=== PATIENT | female | born 1970 | race Caucasian/White ===

== ENCOUNTER 2019-08-17 09:27 | Outpatient (CLI) | payer BC, SELFPAY ==
--- NOTE | ~2019-08-17 | US_ITS ---
EXAMINATION: US right upper quadrant DATE: 08/17/2019 10:18 INDICATION: Right upper quadrant abdominal pain. TECHNIQUE: Multiple grayscale and Doppler ultrasound images of the abdomen were obtained. COMPARISON: None FINDINGS: The visualized portions of the head, body, and tail of the pancreas are normal. There are 2 hyperechoic masses in the liver measuring up to 1.2 cm. There is normal flow in main portal vein. Th e gallbladder is normal in size. No gallstones or gallbladder wall thickening. There was no sonograph ic Dominguez sign. The common duct is normal and measures 4 mm. IMPRESSION: 1. Two hyperechoic masses in the liver measuring up to 1.2 cm. In the absence of known malignancy or chronic liver disease, these findings are likely hemangiomas. Reviewed, dictated and finalized at location A. IMPRESSION: 1. Two hyperechoic masses in the liver measuring up to 1.2 cm. In the absence o f known malignancy or chronic liver disease, these findings are likely hemangio mas.
== END 2019-08-17 09:28 | disposition home or self-care (01) ==
PROVIDERS: PCP Family Medicine; Visit Provider Family Medicine
DX: R10.11 Right upper quadrant pain (principal); R16.0 Hepatomegaly, not elsewhere classified
CPT/HCPCS: 76705

== ENCOUNTER 2023-04-20 18:48 | Emergency (ER) | payer BC, SELFPAY ==
--- NOTE | ~2023-04-20 | XR_ITS ---
EXAMINATION: XR chest 2V Exam Date/Time: 04/20/2023 20:00 [employer] HISTORY: cough with chest tightness,congestion, high BP Comparison: None. RESULT: Lines, tubes, and devices: Bilateral breast implants. Lungs and pleura: Clear. Cardiomediastinal silhouette: Unremarkable. Other: No acute osseous or upper abdominal finding. 2.1 cm ovoid opacity projecting over the lower i nner right breast. IMPRESSION: No acute cardiopulmonary process. 2.1 cm ovoid soft tissue nodule projecting over the lower inner right breast. Recommend referral for diagnostic breast ultrasound and mammography. Reviewed, dictated and finalized at location K. [employer] IMPRESSION: No acute cardiopulmonary process. 2.1 cm ovoid soft tissue nodule projecting over the lower inner right breast. R ecommend referral for diagnostic breast ultrasound and mammography.
[2023-04-20 19:31] VITALS: BP 177/102; PULSE 85; RESP 16; TEMP 37; O2SAT 98
--- NOTE | 2023-04-20 19:44 | ED.URI ---
HPI - URI/Sore Throat General Chief Complaint: Upper Respiratory Infection Stated Complaint: chest congestion,sob Time Seen by Provider: 04/20/23 19:45 Source: patient, RN notes reviewed and old records reviewed Mode of arrival: ambulatory Limitations: no limitations History of Present Illness HPI Narrative: 52-year-old female presents to the [facility] complaints of chest congestion and shortness of breath. For the last 2 nights. Patient states ?it feels like when I get pneumonia? Patient reports fever yesterday had some chest tightness last night, none currently Patient concern for virus is due to a new grandbaby Related Data Home Medications Medication Instructions Recorded Confirmed No Home Medications 04/20/23 04/20/23 Allergies Allergy/AdvReac Type Severity Reaction Status Date / Time sumatriptan [From Imitrex] AdvReac Unknown Unknown Verified 04/20/23 20:56 Review of Systems Review of Systems: All systems reviewed & are unremarkable except as noted in HPI and below Constitutional: Constitutional: Reports no additional constitutional complaints Eyes: Eyes: Reports no additional eye complaints ENT: Reports system reviewed and no additional complaints, except as documented Cardiovascular: Cardiovascular: Reports no additional cardiovascular complaints, Denies chest pain and Denies dyspnea Respiratory: Respiratory: Reports as per HPI, Reports chest congestion, Reports cough and Reports dyspnea Gastrointestinal: Gastrointestinal: Reports no additional gastrointestinal complaints, Denies abdominal pain, Denies nausea and Denies vomiting Musculoskeletal: Musculoskeletal: Reports no additional musculoskeletal complaints Integumentary/Breasts: Skin/Breast: Reports system reviewed and no additional complaints, except as docu Neurologic: Reports system reviewed and no additional complaints, except as documented Psychiatric: Psychiatric: Reports no additional psychiatric complaints Allergic/Immunologic: Allergic/Immunologic: Reports no additional allergic/immunologic complaints [facility] Past Medical History Medical History (Updated 04/20/23 @ 21:[address] Arias APRN) History of high blood pressure Surgical History Surgical History (Updated 04/20/23 @ 21:[address]as APRN) H/O breast implant Comments At the time of my signature, I reviewed and agree with the nursing past medical, surgical, social, and family history. There is no relevant family history pertinent to the patient complaint. Exam Const: General: cooperative, healthy appearing, comfortable, no acute distress, well developed, alert and well nourished Nutritional Appearance: well nourished Orientation/consciousness: patient oriented x3 Limitations: no limitations HENMT: Head: normal to inspection Ears: hearing grossly normal bilaterally, external ears normal, TM's normal bilaterally, EAC's normal, mastoids normal and no periauricular adenopathy Face/Nose/Sinus: Normal external nose present, Normal nares present, Normal nasal mucous membranes and turbinates present, normal facial exam and face symmetric Face and sinus: normal facial exam and face symmetric Mouth: Yes Normal oral and palatal mucosa present, Yes lip normal and Yes moist mucous membranes Throat: posterior oropharynx normal, uvula midline and postnasal drainage Eyes: General: appearance normal, both eyes and all related structures Alignment and Position: alignment normal Periorbital: periorbital findings normal Pupils: Equal, round and reactive pupils present EOM: EOMs intact bilaterally Neck: Neck: normal visual inspection, full ROM, no lymphadenopathy and no meningeal signs Chest: Chest palpation & inspection: normal inspection of the chest Resp: Effort & Inspection: normal respiratory effort and able to speak in complete sentences Auscultation: clear to auscultation bilaterally, no crackles, no rales, no rhonchi and no wheezes Cardio: Rate: regular r
== END 2023-04-20 20:37 | disposition home or self-care (01) ==
PROVIDERS: Emergency Provider Nurse Practitioner; PCP Family Medicine
DX: N63.14 Unspecified lump in the right breast, lower inner quadrant (principal); J06.9 Acute upper respiratory infection, unspecified; Z20.822 Contact with and (suspected) exposure to COVID-19
CPT/HCPCS: 71046; 87426; 87804; 99213; C9803; G0463